=== PATIENT | female | born 1950 | race Caucasian/White ===

== ENCOUNTER 2017-10-10 16:54 | Emergency (ER) | payer BC ==
[~2017-10-10] VITALS: Ht 162.6 cm; Wt 124.1 kg
[~2017-10-10 16:54] MED LIST: LEVO100T60 PO; OXYC-360 PO; STOO100C PO
[2017-10-10 17:24] VITALS: BP 194/100; PULSE 77; RESP 18; TEMP 99; O2SAT 99
[2017-10-10] MEDS ORDERED: SODIUM CHLORIDE 0.9% FLUSH 10 ML FLUSH IVF PRN (18:30)
--- NOTE | 2017-10-10 19:01 | PD ---
HPI Chief Complaint: Bleeding Time Seen by Provider: 18:24 Travel History International Travel<30 days: No Contact w/Intl Traveler<30days: No Traveled to known affect area: No History of Present Illness HPI Patient is a 67-year-old female presenting to emerge department for evaluation of abnormal labs. 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 She reports that for the last 3 weeks she has been fatigued, tired, achy. She states all she wants to do is sleep. She also reports she had 2-3 days of nosebleeds last week. These resolved on their own. She denies any other bleeding. She states that if she bumps any part of her body she bruises easily. For these reasons she presented to her primary care doctor who ordered routine labs. Patient's CBC resulted with a platelet count of 20,000. Patient followed up with Dr. Perez her oncologist today and was sent into the emergency department for evaluation. Patient denies any fevers, chills, shortness of breath, chest pain, headache, visual changes. Symptom onset was gradual, symptoms are moderate in nature. 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) Hypertension: Yes Reproductive: Yes Thyroid Disease: Yes ?: Not Past Surgical History Abdominal Surgery: Yes (gallbladder and spleen removed) Hysterectomy: Yes Other Surgery: Yes (Thyroidectomy) Social History Alcohol Use: Yes (rare occ) Tobacco Use: No Substance Use: No Allergies-Medications (Allergen,Severity, Reaction): Coded Allergies: lidocaine (Verified Allergy, Severe, ALL SAVITA CAUSES THROAT TO SWELL AND SHORTNESS OF BREATH, 10/10/17) Reported Meds & Prescriptions Reported Meds & Active Scripts Active Reported Hydrochlorothiazide 25 Mg Tab 25 Mg PO DAILY Levothyroxine (Levothyroxine Sodium) 100 Mcg Tab 100 Mcg PO DAILY Review of Systems Except as stated in HPI: all other systems reviewed are Neg General / Constitutional: Positive: Other (Fatigue) Eyes: No: Blurred Vision HENT: Positive: Nosebleed, No: Headaches Cardiovascular: No: Chest Pain or Discomfort Respiratory: No: Shortness of Breath Gastrointestinal: No: Nausea, Abdominal Pain Musculoskeletal: Positive: Myalgias Hematologic/Lymphatic: Positive: Easy Bruising Physical Exam Narrative GENERAL: Overweight, well-developed, alert female. Presenting in no acute distress. SKIN: Warm and dry. Purpura to right anterior forearm HEAD: Atraumatic. Normocephalic. EYES: Pupils equal and round. No scleral icterus. No injection or drainage. ENT: No nasal bleeding or discharge. Mucous membranes pink and moist. NECK: Trachea midline. No JVD. CARDIOVASCULAR: Regular rate and rhythm. RESPIRATORY: No accessory muscle use. Clear to auscultation. Breath sounds equal bilaterally. GASTROINTESTINAL: Abdomen soft, non-tender, nondistended. Hepatic and splenic margins not palpable. MUSCULOSKELETAL: Extremities without clubbing, cyanosis, or edema. No obvious deformities. NEUROLOGICAL: Awake and alert. No obvious cranial nerve deficits. Motor grossly within normal limits. Five out of 5 muscle strength in the arms and legs. Normal speech. PSYCHIATRIC: Appropriate mood and affect; insight and judgment normal. Data Data Last Documented VS Vital Signs Date Time Temp Pulse Resp B/P (MAP) Pulse Ox O2 Delivery O2 Flow Rate FiO2 10/10/17 19:57 98.0 58 18 162/105 (124) 98 Room Air Orders Orders Complete Blood Count With Diff (10/10/17 17:27) Platelet Count (Plt) (10/10/17 17:27) Coag Profile (10/10/17 17:27) Comprehensive Metabolic Panel (10/10/17 18:24) Ldh Serum (10/10/17 18:24) Haptoglobin (10/10/17 18:24) Vitamin B12 (10/10/17 18:24) Folate, Serum (10/10/17 18:24) Iv Access Insert/Monitor (10/10/17 18:24) Ecg Monitoring (10/10/17 18:24) Oximetry (10/10/17 18:24) Sodium Chloride 0.9% Flush (Ns Flush) (10/10/17 18:30) Type And Screen (10/10/17 18:24) Pathologist Smear Review (10/10/17 17:27) Fibrinogen (10/10/17:27) Dexamethasone (Decadron) (10/10/17 21:15) Ed Discharge Order (10/10/17 21:15) Labs Laboratory Tests Test 10/10/17 19:06 White Blood Count 7.9 TH/MM3 Red Blood Count 4.90 MIL/MM3 Hemoglobin 14.4 GM/DL Hematocrit 42.2 % Mean Corpuscular Volume 86.2 FL Mean Corpuscular Hemoglobin 29.3 PG Mean Corpuscular Hemoglobin Concent 34.0 % Red Cell Distribution Width 14.2 % Platelet Count 62 TH/MM3 Mean Platelet Volume 10.3 FL Neutrophils (%) (Auto) 56.0 % Lymphocytes (%) (Auto) 34.4 % Monocytes (%) (Auto) 7.1 % Eosinophils (%) (Auto) 2.0 % Basophils (%) (Auto) 0.5 % Neutrophils # (Auto) 4.4 TH/MM3 Lymphocytes # (Auto) 2.7 TH/MM3 Monocytes # (Auto) 0.6 TH/MM3 Eosinophils # (Auto) 0.2 TH/MM3 Basophils # (Auto) 0.0 TH/MM3 CBC Comment AUTO DIFF Differential Comment AUTO DIFF CONFIRMED Platelet Estimate LOW Platelet Morphology Comment ENLARGED Prothrombin Time 9.3 SEC Prothromb Time International Ratio 0.9 RATIO Activated Partial Thromboplast Time 30.0 SEC Fibrinogen 499 mg/dL Blood Urea Nitrogen 16 MG/DL Creatinine 0.89 MG/DL Random Glucose 91 MG/DL Total Protein 7.3 GM/DL Albumin 3.5 GM/DL Calcium Level 9.4 MG/DL Alkaline Phosphatase 54 U/L Aspartate Amino Transf (AST/SGOT) 26 U/L Alanine Aminotransferase (ALT/SGPT) 35 U/L Lactate Dehydrogenase 301 U/L Total Bilirubin 0.4 MG/DL Sodium Level 139 MEQ/L Potassium Level 3.5 MEQ/L Chloride Level 102 MEQ/L Carbon Dioxide Level 27.5 MEQ/L Anion Gap 10 MEQ/L Estimat Glomerular Filtration Rate 64 ML/MIN Vitamin B12 Level 1047 PG/ML Folate GREATER THAN 20.0 NG/ML MDM Medical Decision Making Medical Screen Exam Complete: Yes Emergency Medical Condition: Yes Medical Record Reviewed: Yes Interpretation(s) Vital Signs Date Time Temp Pulse Resp B/P (MAP) Pulse Ox O2 Delivery O2 Flow Rate FiO2 10/10/17 17:24 99.0 77 18 194/100 (131) 99 Differential Diagnosis Thrombocytopenia versus metabolic abnormality versus hemorrhage versus other Narrative Course Patient is a 67-year-old female sent to the emergency department by her oncologist Dr. Perez for evaluation of a low platelet count. Patient was hypertensive on arrival. Labs ordered and pending. Reviewed progress notes from Dr. Perez from today. CBC with a platelet count of 62, this is trended up from the prior on 10/06/17 which resulted at 20 Chemistry is unremarkable LDH is 301, vitamin B12 was 1047, folate is greater than 20, reviewed these labs with Dr. Perez, patient will be discharged home on dexamethasone 40 mg daily 4 days. She will be given the first dose now and a prescription for an additional 3 days. She is to follow-up in the office next week. PT 9.3 INR 0.9, APTT 30, fibrinogen 499 Discussed findings and plan of care with patient. Patient is agreeable with plan. Patient was given strict return precautions patient is advised to return to emergency department immediately for any new bleeding. Patient verbalized understanding of discharge instructions. Patient stable for discharge. Diagnosis Primary Impression: Immune thrombocytopenia Referrals: Beulah Perez MD 1 week Patient Instructions: General Instructions, Immune Thrombocytopenia (ED) Additional Instructions: Follow-up with Dr. Perez in 1 week Take medications as directed Return to emergency department for any new worsening symptoms, bleeding. Med/Other Pt SpecificInfo: Prescription(s) given Scripts Dexamethasone (Dexamethasone) 4 Mg Tab 40 MG PO DAILY for 3 Days, TAB 0 Refills Prov: Anali Mckeon 10/10/17 Disposition: 01 DISCHARGE HOME Condition: Stable Anali Mckeon Oct 10, 2017 19:01
[2017-10-10 19:44] LABS: ALBUMIN 3.5 GM/DL (3.4-5.0); AST (GOT) 26 U/L (15-37); BICARBONATE 27.5 MEQ/L (21.0-32.0); BLOOD UREA NITROGEN 16 MG/DL (7-18); CALCIUM 9.4 MG/DL (8.5-10.1); CHLORIDE 102 MEQ/L (98-107); CREATININE 0.89 MG/DL (0.50-1.00); GLOMERULAR FILTRATION RATE 64 ML/MIN (>89); GLUCOSE,RANDOM 91 MG/DL (74-106); SODIUM (NA) 139 MEQ/L (136-145)
[2017-10-10 19:45] LABS: ALT (GPT) 35 U/L (10-53)
[2017-10-10 19:46] LABS: AUTOMATED NEUTROPHIL # 4.4 TH/MM3 (1.8-7.7); BASOPHIL % 0.5 % (0.0-2.0); EOSINOPHIL # 0.2 TH/MM3 (0-0.4); HEMATOCRIT 42.2 % (35.0-46.0); HEMOGLOBIN 14.4 GM/DL (11.6-15.3); LYMPH % 34.4 % (9.0-44.0); LYMPHOCYTE # 2.7 TH/MM3 (1.0-4.8); MEAN CELL VOLUME 86.2 FL (80.0-100.0); MEAN CORPUSCULAR HEMOGLOBIN 29.3 PG (27.0-34.0); MEAN PLATELET VOLUME 10.3 FL (7.0-11.0); MONO % 7.1 % (0.0-8.0); MONOCYTE # 0.6 TH/MM3 (0-0.9); PLATELET COUNT 62 TH/MM3 (150-450); RED CELL DISTRIBUTION WIDTH 14.2 % (11.6-17.2); WHITE BLOOD COUNT 7.9 TH/MM3 (4.0-11.0)
[2017-10-10 19:57] VITALS: BP 162/105; PULSE 58; RESP 18; TEMP 98; O2SAT 98
[2017-10-10] MEDS ORDERED: LEVO100T5 PO (20:03)
[2017-10-10] MEDS ORDERED: HYDR25TA5 PO (20:03)
[2017-10-10 20:11] LABS: ALKALINE PHOSPHATASE 54 U/L (45-117); TOTAL BILIRUBIN ADULT 0.4 MG/DL (0.2-1.0); TOTAL PROTEIN 7.3 GM/DL (6.4-8.2)
[2017-10-10 20:23] LABS: FOLATE GREATER THAN 20.0 NG/ML (3.1-17.5)
[2017-10-10 20:36] LABS: INTERNATIONAL NORMALIZED RATIO 0.9 RATIO; PROTHROMBIN TIME - PATIENT 9.3 SEC (9.8-11.6)
[2017-10-10] MEDS ORDERED: DEXAMETHASONE 4 MG TAB PO ONE (21:15)
[2017-10-10] MEDS ORDERED: DEXA4TAB PO (21:19)
== END 2017-10-10 22:19 | disposition home or self-care (01) ==
LOC: NEPC 16:54
DX: D69.3 Immune thrombocytopenic purpura (principal); R53.83 Other fatigue; I10 Essential (primary) hypertension; R04.0 Epistaxis
CPT/HCPCS: 80053; 82607; 82746; 83010; 83615; 85025; 85384; 85610; 85730; 86850; 86900; 86901; 99283; J8540